=== PATIENT | male | born 1975 | race African-American/Black ===

== ENCOUNTER → 2023-11-08 08:01 | Outpatient (BNVA) | payer OTHER, SELFPAY | PROVIDERS: PCP Family Medicine; Referring Provider Emergency Medicine Emergency Medical Services; Visit Provider Specialist | DX: M62.838 Other muscle spasm (principal); Z89.512 Acquired absence of left leg below knee | CPT/HCPCS: 99203 ==

== ENCOUNTER → 2023-11-09 12:32 | Outpatient (BNVA) | payer OTHER, SELFPAY | PROVIDERS: PCP Family Medicine; Referring Provider Emergency Medicine Emergency Medical Services; Visit Provider Surgery | DX: Z12.11 Encounter for screening for malignant neoplasm of colon (principal) | CPT/HCPCS: 99203 ==

== ENCOUNTER → 2023-12-15 16:02 | Outpatient (BNVA) | payer OTHER, SELFPAY | PROVIDERS: PCP Family Medicine; Visit Provider Specialist | DX: R25.2 Cramp and spasm (principal); R29.2 Abnormal reflex | CPT/HCPCS: 64642; J0585 ==

== ENCOUNTER → 2024-06-22 14:30 | Outpatient (BNVA) | payer OTHER, SELFPAY | PROVIDERS: PCP Family Medicine; Visit Provider Specialist | DX: R29.2 Abnormal reflex (principal); I10 Essential (primary) hypertension | CPT/HCPCS: 64642; J0585 ==

== ENCOUNTER → 2024-08-06 15:00 | Outpatient (BNVA) | payer OTHER, SELFPAY | PROVIDERS: PCP Family Medicine; Visit Provider Nurse Practitioner Family | DX: L60.8 Other nail disorders (principal); D22.71 Melanocytic nevi of right lower limb, including hip; L60.0 Ingrowing nail | CPT/HCPCS: 99203 ==

== ENCOUNTER → 2024-09-28 12:25 | Outpatient (BNVA) | payer OTHER, SELFPAY | PROVIDERS: PCP Family Medicine; Visit Provider Specialist | DX: R29.2 Abnormal reflex (principal) | CPT/HCPCS: 64642; J0585 ==

== ENCOUNTER → 2025-01-04 12:03 | Outpatient (BNVA) | payer OTHER, SELFPAY | PROVIDERS: PCP Family Medicine; Visit Provider Specialist | DX: R29.2 Abnormal reflex (principal) | CPT/HCPCS: 64642; J0585; J9999 ==

== ENCOUNTER → 2025-04-04 11:56 | Outpatient (BNVA) | payer OTHER, SELFPAY | PROVIDERS: PCP Family Medicine; Visit Provider Specialist | DX: G54.6 Phantom limb syndrome with pain (principal); R29.2 Abnormal reflex | CPT/HCPCS: 64642; 99214; J0585; J9999 ==

== ENCOUNTER → 2025-07-11 10:03 | Outpatient (BNVA) | payer OTHER, SELFPAY | PROVIDERS: PCP Family Medicine; Visit Provider Specialist | DX: R29.2 Abnormal reflex (principal); G54.6 Phantom limb syndrome with pain | CPT/HCPCS: 64642; J0585; J9999 ==

== ENCOUNTER → 2025-08-01 08:23 | Outpatient (BNVA) | payer OTHER, SELFPAY | PROVIDERS: PCP Family Medicine; Visit Provider Podiatrist Foot & Ankle Surgery | DX: L60.0 Ingrowing nail (principal) | CPT/HCPCS: 11750; 99203; J9999 ==